=== PATIENT | female | born 1980 | race Hispanic/Latino ===

== ENCOUNTER 2024-04-27 07:53 | Emergency (ER) | payer OTHER ==
[2024-04-27] MEDS ORDERED: LIDOCAINE 2% W/EPI 1:200,000 MPF 20 ML VIAL IM ONE (08:35)
[2024-04-27] MEDS ORDERED: IBUPROFEN 200 MG TAB PO ONE (08:55)
--- NOTE | 2024-04-27 08:56 | EDPHYS ---
Physician Documentation [facility] Name: Yessy Thapa Age: 43 yrs Sex: Female : 1980 Arrival Date: 04/27/2024 Time: 07:53 Bed 10 Private MD: ED Physician Ranjit Werner HPI: 04/27 15:12 This 43 yrs old Female presents to ER via Ambulatory with complaints of Boil - ms3 on stomach. 15:12 Yessy Thapa is a 43-year-old female presenting to the Emergency Department with a ms3 complaint of a boil on the left lower abdomen that started approximately one week ago. She reports bodyaches and feeling hot. She reports sweating but did not quantify the fever, describing it as subjective. The patient rates her discomfort as an 8 out of 10. She has not taken any medications such as Tylenol or Ibuprofen for relief. Yessy notes a history of similar boils, though not in the same location. . 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 - Infectious Disease History:: Denies. - Social history:: Smoking status: Patient denies any tobacco usage or history of. ROS: 15:12 Constitutional: Negative for fever, and chills. Cardiovascular: Negative for chest ms3 pain, and palpitations. Respiratory: Negative for shortness of breath, cough, wheezing, and pleuritic chest pain, Abdomen/GI: Negative for abdominal pain, nausea, vomiting, diarrhea, and constipation, MS/Extremity: Negative for injury and deformity, 15:12 Skin: Positive for abscess, Exam: 15:12 Constitutional: This is a well developed, well nourished patient who is awake, alert, ms3 and in no acute distress. Chest/axilla: Normal chest wall appearance and motion. Nontender with no deformity. Cardiovascular: Regular rate and rhythm with a normal S1 and S2. No gallops, murmurs, or rubs. Normal PMI, no JVD. No pulse deficits. Respiratory: Lungs have equal breath sounds bilaterally, clear to auscultation and percussion. No rales, rhonchi or wheezes noted. No increased work of breathing, no retractions or nasal flaring. 15:12 Abdomen/GI: Bowel sounds: normal, Palpation: abdomen is soft and non-tender, in all quadrants, Abscess left lower quadrant abdominal wall, Vital Signs: 08:37 BP 115 / 88; Pulse 87; Resp 17; Temp 97.9; Pulse Ox 99% ; Height 5 ft. 0 in. ; Pain jl7 8/10; 08:37 Pain Scale: Adult jl7 MDM: 08:22 Medical Screening Exam initiated ms3 15:12 Differential diagnosis: Abscess versus cellulitis versus hidradenitis suppurativa. Data ms3 reviewed: vital signs, nurses notes, and as a result, I will discharge patient. I considered the following discharge prescriptions or medication management in the emergency department Medications were administered in the Emergency Department. See MAR. Independent interpretation of the following test(s) in the Emergency Department Point of Care Ultrasound performed by Emergency Department Team, please see interpretation in the Ultrasound procedure note. Care significantly affected by the following chronic conditions: Diabetes. Counseling: I had a detailed discussion with the patient and/or guardian regarding the historical points, exam findings, and any diagnostic results supporting the discharge/admit diagnosis, the need for outpatient follow up, to return to the emergency department if symptoms worsen or persist or if there are any questions or concerns that arise at home. Special discussion: I discussed with the patient/guardian in detail that at this point there is no indication for admission to the hospital. It is understood, however, that if the symptoms persist or worsen the patient needs to return immediately for re-evaluation. ED course: Bedside ultrasound revealed abscess. I\T\D performed without complications. Patient to follow-up with Dr. Frederick in 2 to 3 days. Patient understands agrees with plan. Patient given prescription for doxycycline. Return precautions discussed include fevers, worsening erythema, worsening symptoms, or any other concerns.. 04/27 08:22 Order name: Incision \T\ Drainage Setup; Complete Time: 08:40 ms3 Administered Medications: 08:50 Drug: Lidocaine-Epinephrine Infiltration -1%: (1:100,000) 10 ml 20 ml Infiltration ss once; to bedside {Note: administered by Dr. Werner to affected area .} Volume: 20 ml; Route: Infiltration; 09:02 Drug: Ibuprofen PO 600 mg PO once Route: PO; 09:02 Follow up: Response: Medication Administered at Departure ss Disposition Summary: 04/27/24 08:55 Discharge Ordered Notes: Location: Home ms3 Condition: Stable ms3 Diagnosis - Cutaneous abscess of abdominal wall ms3 Followup: ms3 - With: Jono Frederick DO - When: 2 - 3 days - Reason: Re-evaluation by your physician Discharge Instructions: - Discharge Summary Sheet ms3 - Skin Abscess ms3 - Incision and Drainage ms3 Forms: - Work release form ss - Medication Reconciliation Form ms3 - Antibiotic Education ms3 - Prescription Opioid Use ms3 - Patient Portal Instructions ms3 - Leadership Thank You Letter ms3 Prescriptions: - Ibuprofen 600 mg Oral Tablet - take 1 tablet ORAL route every 6 hours As needed take with food; 30 tablet; ms3 Refills: 0, Product Selection Permitted - Doxycycline Hyclate 100 mg Oral Tablet - take 1 tablet ORAL route every 12 hours; 20 tablet; Refills: 0, Product ms3 Selection Permitted Signatures: Lori Pearson, RN RN Humberto Guzmán RN RN jl7 Ranjit Werner DO DO ms3
--- NOTE | 2024-04-27 08:56 | ER ---
Nurse's Notes [facility] Name: Yessy Thapa Age: 43 yrs Sex: Female : 1980 Arrival Date: 04/27/2024 Time: 07:53 Bed 10 [facility] MD: Diagnosis: Cutaneous abscess of abdominal wall Presentation: 04/27 08:37 Chief complaint: Patient states: Boil on stomach x a few days. Coronavirus screen: At jl7 this time, the client does not indicate any symptoms associated with coronavirus-19. Ebola Screen: No symptoms or risks identified at this time. Initial Sepsis Screen: Does the patient meet any 2 criteria? No. Patient's initial sepsis screen is negative. Does the patient have a suspected source of infection? No. Patient's initial sepsis screen is negative. Risk Assessment: Do you want to hurt yourself or someone else? Patient reports no desire to harm self or others. Onset of symptoms is unknown. 08:37 Method Of Arrival: Ambulatory 7 08:37 Acuity: PAT 4 jl7 Triage Assessment: 08:39 General: Appears in no apparent distress. uncomfortable, Behavior is calm, cooperative, jl7 appropriate for age. Pain: Complains of pain in abdomen. Derm: Abscess located on left lower quadrant is quarter sized, is red, is raised. 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 - Infectious Disease History:: Denies. - Social history:: Smoking status: Patient denies any tobacco usage or history of. Screenin:51 Abuse screen: Denies threats or abuse. Denies injuries from another. Nutritional ss screening: No deficits noted. Tuberculosis screening: Never had TB. Assessment: 09:11 Reassessment: Patient appears in no apparent distress at this time. Patient and/or ss family updated on plan of care and expected duration. Pain level reassessed. Patient is alert, oriented x 3, equal unlabored respirations, skin warm/dry/pink. Vital Signs: 08:37 BP 115 / 88; Pulse 87; Resp 17; Temp 97.9; Pulse Ox 99% ; Height 5 ft. 0 in. ; Pain jl7 810; 08:37 Pain Scale: Adult jl7 ED Course: 07:56 Patient arrived in ED. im 07:58 Ranjit Werner DO is Attending Physician. ms3 08:39 Triage completed. jl7 08:39 Arm band placed on right wrist. jl7 08:50 Lori Pearson, RN is Primary Nurse. ss 08:51 Patient has correct armband on for positive identification. Bed in low position. ss 08:51 Assist provider with I \T\ D: of an abscess on abdomen Set up I\T\D tray. Performed by ss Ranjit Werner DO Dressing with 4X4s, tape Patient tolerated well. Patient did not have IV access during this emergency room visit. 08:55 Jono Frederick DO is Referral Physician. ms3 Administered Medications: 08:50 Drug: Lidocaine-Epinephrine Infiltration -1%: (1:100,000) 10 ml 20 ml Infiltration once; to bedside {Note: administered by Dr. Werner to affected area .} Volume: 20 ml; Route: Infiltration; 09:02 Drug: Ibuprofen PO 600 mg PO once Route: PO; ss 09:02 Follow up: Response: Medication Administered at Departure Outcome: 08:55 Discharge ordered by MD. ms3 09:11 Discharged to home ambulatory, ss 09:11 Condition: good 09:11 Discharge instructions given to patient, family, Instructed on discharge instructions, follow up and referral plans. medication usage, Demonstrated understanding of instructions, follow-up care, medications, Prescriptions given X 2, 09:12 Patient left the ED. Signatures: Lori Pearson, [place] RN Humberto Guzmán RN RN jl7 Ranjit Werner DO DO ms3 Amparo Walsh im Corrections: (The following items were deleted from the chart) 08:50 08:50 Lidocaine-Epinephrine Infiltration -1%: (1:100,000) 10 ml 20 ml Infiltration [facility]
[2024-04-27 09:36] VITALS: BP 115/88; TEMP 97.9; O2SAT 99
== END 2024-04-27 09:12 | disposition home or self-care (01) ==
LOC: ER 07:53
PROC: 0H97XZZ Drainage of Abdomen Skin, External Approach (ICD-10-PCS; principal; 2024-04-27)
DX: L02.211 Cutaneous abscess of abdominal wall (principal)
CPT/HCPCS: 99283